=== PATIENT | male | born 2000 | race Caucasian/White ===

== ENCOUNTER 2020-09-08 15:17 | Emergency (ER) | payer BC ==
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
== END 2020-09-08 16:15 | disposition home or self-care (01) ==
LOC: LL.ED 15:17
DX: M54.5 Low back pain (principal); Z71.6 Tobacco abuse counseling; F41.8 Other specified anxiety disorders; F19.90 Other psychoactive substance use, unspecified, uncomplicated; J45.909 Unspecified asthma, uncomplicated; F03.90 Unspecified dementia, unspecified severity, without behavioral disturbance, psychotic disturbance, mood disturbance, and anxiety; Z79.899 Other long term (current) drug therapy; R03.0 Elevated blood-pressure reading, without diagnosis of hypertension; Z88.0 Allergy status to penicillin
CPT/HCPCS: 72110; 99283